=== PATIENT | male | born 1935 | race Caucasian/White ===

== ENCOUNTER 2016-08-07 14:03 | Emergency (ER) | payer MEDICARE, OTHER | END 2016-08-07 18:00 | disposition home or self-care (01) | LOC: ER 14:03 | DX: K59.00 Constipation, unspecified (principal); R33.9 Retention of urine, unspecified; R10.84 Generalized abdominal pain; R11.2 Nausea with vomiting, unspecified; I51.9 Heart disease, unspecified; I10 Essential (primary) hypertension; J44.9 Chronic obstructive pulmonary disease, unspecified ==

== ENCOUNTER 2016-08-09 12:11 | Emergency (ER) | payer MEDICARE, OTHER | END 2016-08-09 12:35 | disposition home or self-care (01) | LOC: ER 12:11 | DX: Z46.6 Encounter for fitting and adjustment of urinary device (principal); I25.10 Atherosclerotic heart disease of native coronary artery without angina pectoris; I10 Essential (primary) hypertension; Z79.899 Other long term (current) drug therapy; Z79.02 Long term (current) use of antithrombotics/antiplatelets ==

== ENCOUNTER 2016-08-12 15:52 | Emergency (ER) | payer MEDICARE, OTHER ==
[~2016-08-12 15:52] MED LIST: AMOXICILLIN500 MG PO; BYSTOLIC10 MG PO; HYDROCODON-ACE1 EAC6 PO; HYTRIN5 MG PO; NORVASC10 MG PO; PHENERGAN25 M1 PO; PREDNISONE10 M1 PO; PRILOSEC20 MG PO; SYNTHROID100 MCG PO
== END 2016-08-12 17:48 | disposition home or self-care (01) ==
LOC: ER 15:52
DX: L03.115 Cellulitis of right lower limb (principal); S81.801D Unspecified open wound, right lower leg, subsequent encounter; W19.XXXD Unspecified fall, subsequent encounter; J44.9 Chronic obstructive pulmonary disease, unspecified
CPT/HCPCS: 96372; 99282-25; 99283